=== PATIENT | female | born 1955 | race Caucasian/White ===

== ENCOUNTER 2020-07-04 11:06 | Inpatient (IN) | payer MEDICARE, BC ==
[~2020-07-04] VITALS: Ht 157.5 cm; Wt 82.6 kg
[2020-07-04 11:49] LABS: BASOPHILS ABSOLUTE AUTO 0.06 K/mm3 (0.00-0.23); BASOPHILS PERCENT AUTO 1 % (0-2); EOSINOPHILS ABSOLUTE AUTO 0.04 K/mm3 (0.00-0.68); EOSINOPHILS PERCENT AUTO 1 % (0-6); Hematocrit 46.7 % (33.0-51.0); Hemoglobin 14.2 g/dL (11.5-16.0); IMMATURE GRAN ABSOLUTE AUTO 0.09 K/mm3 (0.00-0.10); IMMATURE GRAN PERCENT AUTO 1 % (0-1); LYMPHOCYTES ABSOLUTE AUTO 0.54 K/mm3 (0.84-5.20); LYMPHOCYTES PERCENT AUTO 7 % (21-46); MONOCYTES ABSOLUTE AUTO 0.67 K/mm3 (0.16-1.47); MONOCYTES PERCENT AUTO 9 % (4-13); Mean Corpuscular HGB 31.2 pg (26.0-34.0); Mean Corpuscular HGB Conc 30.4 g/dL (31.5-36.5); Mean Corpuscular Volume 103 fL (80-100); Mean Platelet Volume 10.2 fL (9.1-12.4); NEUTROPHILS ABSOLUTE AUTO 6.11 K/mm3 (1.96-9.15); NEUTROPHILS PERCENT AUTO 81 % (41-73); Platelet Count 243 K/mm3 (150-400); RDW Coefficient Variation 14.2 % (11.7-14.2); RDW Standard Deviation 53.8 fL (35.1-46.3); Red Blood Cell Count 4.55 M/mm3 (3.80-5.20); White Blood Cell Count 7.51 K/mm3 (4.00-11.30)
[2020-07-04 12:12] LABS: Albumin, Blood 3.5 g/dL (3.4-5.0); Albumin/Globulin Ratio 1.2 (0.8-1.8); Bilirubin, Total 1.4 mg/dL (0.1-1.0); Bun/Creatinine Ratio 14.4 (12.0-20.0); Calcium, Blood 8.7 mg/dL (8.5-10.1); Creatinine, Blood 1.18 mg/dL (0.40-1.00); Globulin, Blood 2.9 g/dL (2.2-4.0); Potassium, Blood 4.6 mmol/L (3.5-5.5); Total Protein, Blood 6.4 g/dL (6.4-8.2); Troponin I 0.209 ng/mL (0.000-0.040)
[2020-07-04] MEDS ORDERED: ATOR80 PO (12:12)
[2020-07-04] MEDS ORDERED: LAMO100 PO (12:12)
[2020-07-04] MEDS ORDERED: LEVSOD25 PO (12:12)
[2020-07-04] MEDS ORDERED: ROPI1 PO (12:12)
[2020-07-04] MEDS ORDERED: MELO7.5 PO (12:13)
[2020-07-04 12:16] LABS: PCO2 Arterial 44.1 mmHg (35-45); PO2 Arterial 125 mmHg (80-100); pH Blood Arterial 7.35 (7.35-7.45)
[2020-07-04 12:51] LABS: U Amphetamine Screen Not Detected; U Barbituate Screen Not Detected; U Benzodiazapine Screen Not Detected; U Buprenorphine Screen Not Detected; U Cannabinoids Screen Not Detected; U Cocaine Screen Not Detected; U Methadone Screen Not Detected; U Methamphetamine Screen Not Detected; U Opiates Screen Not Detected; U Oxycodone Screen Not Detected; U Phencyclidine Screen Not Detected; U Propoxyphene Screen Not Detected
--- NOTE | 2020-07-04 17:49 | NUR ---
SUMMARY Assumed care of pt upon arrival to ICU from ED at 1505. Pt arrived on ventilator via 7.5 cm ETT, 23 cm LAMAR. Ventilator settings AC 16/350/7/30%. Pt initially sedated with propofol 10 mcg/kg/min with dosing weight 95 kg. Dosing weight changed to 85 kg and propofol increased to 20 mcg/kg/min as pt was easily agitated, pulling on restraints and attempting to grab ETT. Lungs coase t/o. Productive cough with frothy pink sputum. Dr Alford aware. BP low/normal. 500 mL bolus given per Dr Alford increased BP. Pt arrived with clamped OG tube in place with brown drainage in tube. Temp toure in place draining clear, yellow urine. No family has been in to see pt at this time.
--- NOTE | 2020-07-04 19:49 | NUR ---
ASSUMED CARE ASSUMED PT CARE. PT ET TO VENT, AC 16, TV 350, PEEP 7.0, FIO2 30%. LUNG SOUNDS COARSE THROUGHOUT. PUPILS PINPOINT. PT. RESPONDS TO PAINFUL STIMULI AND IS SEDATED ON PROPOFOL @ 30MCG. OG TO INTERMITTENT SUCTION. BOWEL TONES NORMAL. JONES CATH DRAINING CLEAR YELLOW URINE. NO SWELLING TO LOWER EXTREMETIES.
[2020-07-05 04:18] LABS: BASOPHILS ABSOLUTE AUTO 0.04 K/mm3 (0.00-0.23); BASOPHILS PERCENT AUTO 0 % (0-2); EOSINOPHILS ABSOLUTE AUTO 0.15 K/mm3 (0.00-0.68); EOSINOPHILS PERCENT AUTO 2 % (0-6); Hematocrit 39.7 % (33.0-51.0); Hemoglobin 12.4 g/dL (11.5-16.0); IMMATURE GRAN ABSOLUTE AUTO 0.03 K/mm3 (0.00-0.10); IMMATURE GRAN PERCENT AUTO 0 % (0-1); LYMPHOCYTES ABSOLUTE AUTO 1.29 K/mm3 (0.84-5.20); LYMPHOCYTES PERCENT AUTO 13 % (21-46); MONOCYTES ABSOLUTE AUTO 0.51 K/mm3 (0.16-1.47); MONOCYTES PERCENT AUTO 5 % (4-13); Mean Corpuscular HGB 31.6 pg (26.0-34.0); Mean Corpuscular HGB Conc 31.2 g/dL (31.5-36.5); Mean Corpuscular Volume 101 fL (80-100); Mean Platelet Volume 10.2 fL (9.1-12.4); NEUTROPHILS ABSOLUTE AUTO 7.84 K/mm3 (1.96-9.15); NEUTROPHILS PERCENT AUTO 80 % (41-73); Platelet Count 177 K/mm3 (150-400); RDW Coefficient Variation 14.6 % (11.7-14.2); RDW Standard Deviation 53.7 fL (35.1-46.3); Red Blood Cell Count 3.92 M/mm3 (3.80-5.20); White Blood Cell Count 9.86 K/mm3 (4.00-11.30)
[2020-07-05 04:38] LABS: Albumin, Blood 2.6 g/dL (3.4-5.0); Albumin/Globulin Ratio 1.2 (0.8-1.8); Bun/Creatinine Ratio 20.2 (12.0-20.0); Calcium, Blood 7.9 mg/dL (8.5-10.1); Creatinine, Blood 1.04 mg/dL (0.40-1.00); Globulin, Blood 2.1 g/dL (2.2-4.0); Potassium, Blood 3.3 mmol/L (3.5-5.5); Total Protein, Blood 4.7 g/dL (6.4-8.2)
--- NOTE | 2020-07-05 05:05 | NUR ---
PT POC GLUCOSE 59. NOTIFIED DR. BALTAZAR. IV FLUIDS TO CHANGE FROM NS TO D5.
--- NOTE | 2020-07-05 05:10 | NUR ---
PT. POTASSIUM AT 3.3. POTASSIUM ORDERED PER ELECTROLYTE PROTOCOL.
[2020-07-05 05:36] LABS: PO2 Arterial 111 mmHg (80-100); pH Blood Arterial 7.42 (7.35-7.45)
--- NOTE | 2020-07-05 06:33 | NUR ---
PT SUMMARY PT REMAINS ET TO VENT. AC 16, TV 350, FIO2 30%, PEEP 7. LUNG SOUNDS COARSE. SUCTIONING CLEAR SPUTUM. PT REMAINS ON PROPOFOL NOW AT 15MCG. PT. DOES WITHDRAW FROM PAIN AND DOES MAKE ATTEMPT TO OPEN EYES WHEN PROMPTED. NO OTHER PURPOSEFUL MOVEMENT. OG INTACT DRAINING GREEN FLUID. JONES CATH INTACT DRAINING DAVE FLUID.
--- NOTE | 2020-07-05 08:37 | NUR ---
Assumed care of pt at 0700. Bedside report received from Tu GOMEZ. Sedated with 15 mcg/kg/min propofol. Responsive to painful stimulus. Pt became alert with ET suctioning. Following commands. Changed to spontaneous mode on ventilator PS 7/7 and 30% FiO2. RR 22-24. Tidal volumes 250-300 mL. SpO2 100%. Propofol turuned off. No increase noted in tidal volumes. Precedex started. SBT continued until 0810 until pt became agitated while receiving echocardiogram. Pt switched back to AC 16/350/7/30%. Propofol at 15 mcg/kg/min. Precedex 0.2 mcg/kg/hr. On assessment, ETT remains 23 cm LAMAR. Lungs clear t/o. Moderate amounts of thick, guerrero sputum suctioned from ETT. Abd soft, nontender, nondistended. Hypoactive BT. OG tube to LIS with bile drainage. Temp toure draining clear shadia urine.
--- NOTE | 2020-07-05 11:18 | NUR ---
Pt's in to see pt briefly. Updated on echocardiogram results. Dr Yousif consulted by Dr Alford. Dr Yuosif states plan to take patient to labor relations manager this afternoon for patient to have left and right heart cath. Decreased urine output noted this morning. Dr Yousif and Dr Alford aware of current BP and urine output. Call placed to son by Dr Yousif. Son is POA according to pt's spouse.
[2020-07-05 11:26] LABS: Source, Urine Catheter
[2020-07-05 11:41] LABS: Appearance, Urine Hazy (Clear); Bilirubin, Urine Neg (Neg); Blood, Urine 4+ (Neg); Color, Urine Yellow (P-Yellow); Glucose Qualitative, Urine 1+ (Neg); Ketones, Urine Neg (Neg); Leukocyte Esterase, Urine Neg (Neg); Nitrite, Urine Neg (Neg); Protein, Urine 4+ (Neg); Specific Gravity, Urine 1.015 (1.003-1.022); Urobilinogen, Urine 1+ (Normal)
[2020-07-05 11:58] LABS: Amorphous Mod (0-Heavy); Bacteria Many /hpf; Squamous Epithelial Cells Few /hpf (Few)
[2020-07-05 13:13] LABS: International Normalized Ratio 1.61; Prothrombin Time Results 16.8 Sec (9.7-11.5)
--- NOTE | 2020-07-05 13:38 | NUR ---
Patient to slab lifting supervisor. At time of transfer, precedex off. Propofol 20 mcg/kg/min.
--- NOTE | 2020-07-05 17:47 | NUR ---
Pt returned back to room from open hearth laborer at 1538. Pt arrived with right femoral artery site with baloon pump. Right femoral venous site with sheath in place. BP stable. Augmentation pressure 120s. HR 48-52. Dr Yousif at bedside shortly after pt arrival to unit for LUZ. Pt remained on same dose of propofol (20 mcg/kg/min) for LUZ sedation. Tolerated well. After LUZ, family updated by Dr Yousif and plan for pt to transfer to [place]. On assessment, pt responsive to painful stimulus. Gag and cough present. Precedex remains off. Lungs clear t/o. SpO2 90% or greater AC 16/350/7/30%. ETT remains 23 cm LAMAR. Sinus bradycardia per monitor. Levophed started to maintain augmentation pressure in 120s in addition to 1:1 IAB frequency and maximum setting on baloon pump. Color, sensation, capillary refill, and distal pulses equal BUE and BLE.
--- NOTE | 2020-07-05 20:07 | NUR ---
Pt departed from ICU 7 at 1920 with REACH, to [facility]. Transfer via ground as air transfer is not available due to weather. Report called to Farheen GOMEZ at [facility]. At time of transfer, pt sedated with 20 mcg/kg/min (dosing weight 85) propofol. Responsive to painful stimulus. Wrists restrained to prevent self-extubation. SB per monitor with HR ranging 48-52. Dr Yousif aware of low HR. Balloon pump with 1:1 assist and maximum augmentation pressure setting. Pt also receiving 1 mcg/min levophed. Augmentation pressures 120s. Right femoral artery and right femoral vein accesses unchanged from inital assessment. No bruising, leakage, or hematoma. Color, sensation, pulses, and capillary refill equal BUE and BLE. In addition to propofol and levophed, pt departed with D10 infusing at rate of 75 mL/hr and heparin infusing per orders 13 units/kg/hr with ideal weight dosing of 63 kg. All IV fluids infusing through PICC line in JOSÉ MIGUEL that has 1 cm exposed- which is unchanged from measurement at time of placement. Dressing C/D/I. Pt also had one saline locked IV to [facility]. Patient received 1 amp of D50 prior to departure due to low blood sugar levels per telephone order from Dr Solis. Pt departed with clamped OG tube- tube feeds were never started on this patient. Temp toure catheter in place draining dark shadia urine. Approx 40 mL urine output since arrival from [facility]. Pt's son notified of pt's departure from facility. Receiving facility notified of pt's departure as well. Additional bottle of propofol sent with transport crew.
== END 2020-07-05 19:17 | disposition short-term general hospital (02) | DRG 270 ==
LOC: ER 11:06 → ICUW 13:30 → ICUE 13:30
PROVIDERS: Internal Medicine Pulmonary Disease; Pharmacist; Physician Assistant; ADMIT Internal Medicine
PROC: 0BH18EZ Insertion of Endotracheal Airway into Trachea, Via Natural or Artificial Opening Endoscopic (ICD-10-PCS; principal; 2020-07-04)
PROC: 5A1945Z Respiratory Ventilation, 24-96 Consecutive Hours (ICD-10-PCS; 2020-07-04)
PROC: 02HV33Z Insertion of Infusion Device into Superior Vena Cava, Percutaneous Approach (ICD-10-PCS; 2020-07-04)
PROC: B24BZZ4 Ultrasonography of Heart with Aorta, Transesophageal (ICD-10-PCS; 2020-07-05)
PROC: 5A02210 Assistance with Cardiac Output using Balloon Pump, Continuous (ICD-10-PCS; 2020-07-05)
PROC: B24BZZ4 Ultrasonography of Heart with Aorta, Transesophageal (ICD-10-PCS; 2020-07-05)
PROC: 4A023N8 Measurement of Cardiac Sampling and Pressure, Bilateral, Percutaneous Approach (ICD-10-PCS; 2020-07-05)
PROC: B2111ZZ Fluoroscopy of Multiple Coronary Arteries using Low Osmolar Contrast (ICD-10-PCS; 2020-07-05)
DX: I34.0 Nonrheumatic mitral (valve) insufficiency (principal); G92 Toxic encephalopathy; J96.01 Acute respiratory failure with hypoxia; I21.4 Non-ST elevation (NSTEMI) myocardial infarction; B17.9 Acute viral hepatitis, unspecified; E87.0 Hyperosmolality and hypernatremia; I50.30 Unspecified diastolic (congestive) heart failure; Z99.81 Dependence on supplemental oxygen; Z20.828 Contact with and (suspected) exposure to other viral communicable diseases; G40.909 Epilepsy, unspecified, not intractable, without status epilepticus; Z96.611 Presence of right artificial shoulder joint; F31.9 Bipolar disorder, unspecified; E78.5 Hyperlipidemia, unspecified; Z87.891 Personal history of nicotine dependence; I27.20 Pulmonary hypertension, unspecified; E87.6 Hypokalemia; I25.10 Atherosclerotic heart disease of native coronary artery without angina pectoris; E16.2 Hypoglycemia, unspecified; Z78.1 Physical restraint status; I11.0 Hypertensive heart disease with heart failure
CPT/HCPCS: 31500; 31720; 33967; 36415; 36569; 36600; 70450; 71045; 76700; 76937; 80053; 81001; 82803; 82947; 83605; 83880; 84484; 85025; 85610; 85730; 87040; 87070; 87086; 87205; 93005; 93010; 93306; 93312; 93325; 93460; 94002; 94003; 94770; 96375; 96376; 99152; 99153; 99285-25; A9270-GY; C1751; C1769; C1894; C9113; J0330; J0696; J1644; J1650; J1953; J2060; J2704; J3010; J3480; J7030; J7040; J7050; J7060; J7070; Q9967; U0004

== ENCOUNTER 2020-07-14 13:48 | Inpatient (IN) | payer MEDICARE, BC ==
[~2020-07-14] VITALS: Ht 154.9 cm; Wt 73.4 kg
[~2020-07-14 13:48] MED LIST: ATOR80 PO; LAMO100 PO; LEVSOD25 PO; MELO7.5 PO; ROPI1 PO
[2020-07-14 14:47] LABS: BASOPHILS ABSOLUTE AUTO 0.13 K/mm3 (0.00-0.23); BASOPHILS PERCENT AUTO 1 % (0-2); EOSINOPHILS ABSOLUTE AUTO 0.16 K/mm3 (0.00-0.68); EOSINOPHILS PERCENT AUTO 2 % (0-6); Hemoglobin 13.6 g/dL (11.5-16.0); IMMATURE GRAN ABSOLUTE AUTO 0.05 K/mm3 (0.00-0.10); IMMATURE GRAN PERCENT AUTO 1 % (0-1); LYMPHOCYTES ABSOLUTE AUTO 1.01 K/mm3 (0.84-5.20); LYMPHOCYTES PERCENT AUTO 10 % (21-46); MONOCYTES ABSOLUTE AUTO 0.93 K/mm3 (0.16-1.47); MONOCYTES PERCENT AUTO 10 % (4-13); Mean Corpuscular HGB 31.4 pg (26.0-34.0); Mean Corpuscular HGB Conc 30.9 g/dL (31.5-36.5); Mean Corpuscular Volume 102 fL (80-100); Mean Platelet Volume 9.9 fL (9.1-12.4); NEUTROPHILS ABSOLUTE AUTO 7.49 K/mm3 (1.96-9.15); NEUTROPHILS PERCENT AUTO 77 % (41-73); Platelet Count 352 K/mm3 (150-400); RDW Coefficient Variation 14.9 % (11.7-14.2); RDW Standard Deviation 55.2 fL (35.1-46.3); Red Blood Cell Count 4.33 M/mm3 (3.80-5.20); White Blood Cell Count 9.77 K/mm3 (4.00-11.30)
[2020-07-14 14:58] LABS: International Normalized Ratio 1.15; Prothrombin Time Results 12.2 Sec (9.7-11.5)
[2020-07-14 15:29] LABS: Albumin/Globulin Ratio 0.9 (0.8-1.8); Bilirubin, Total 0.9 mg/dL (0.1-1.0); Bun/Creatinine Ratio 12.7 (12.0-20.0); Creatinine, Blood 1.18 mg/dL (0.40-1.00); Globulin, Blood 3.4 g/dL (2.2-4.0); Potassium, Blood 3.6 mmol/L (3.5-5.5); Total Protein, Blood 6.4 g/dL (6.4-8.2)
[2020-07-14] MEDS ORDERED: ROPINIROLE HCL3 M1 PO (15:52)
[2020-07-14] MEDS ORDERED: TORS10 PO (15:53)
[2020-07-14] MEDS ORDERED: MOBIC15 MG PO (15:53)
[2020-07-14 17:15] LABS: Source, Urine Clean Catch
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
[2020-07-14 17:38] LABS: Appearance, Urine Clear (Clear); Bilirubin, Urine Neg (Neg); Blood, Urine Neg (Neg); Color, Urine Yellow (P-Yellow); Glucose Qualitative, Urine Neg (Neg); Ketones, Urine Neg (Neg); Leukocyte Esterase, Urine Neg (Neg); Nitrite, Urine Neg (Neg); Protein, Urine Neg (Neg); Urobilinogen, Urine NORM (Normal)
--- NOTE | 2020-07-14 22:19 | NUR ---
PT TRANSFER TO SCU PT TRANSFERED TO SCU DUE TO WANDERING MAIN FLOOR. PT CONFUSED AND DOES NOT FOLLOW DIRECTION. RECIEVED REORT FROM Kalie STANFORD RN. PT HAS REFUSED SCHEDULED MEDS. PT REFUSES TO WEAR TELE AND CONTINUALLY PULLS LEADS OFF.
[2020-07-15 05:19] LABS: BASOPHILS ABSOLUTE AUTO 0.14 K/mm3 (0.00-0.23); BASOPHILS PERCENT AUTO 2 % (0-2); EOSINOPHILS ABSOLUTE AUTO 0.48 K/mm3 (0.00-0.68); EOSINOPHILS PERCENT AUTO 6 % (0-6); Hematocrit 44.6 % (33.0-51.0); Hemoglobin 13.7 g/dL (11.5-16.0); IMMATURE GRAN ABSOLUTE AUTO 0.07 K/mm3 (0.00-0.10); IMMATURE GRAN PERCENT AUTO 1 % (0-1); LYMPHOCYTES PERCENT AUTO 14 % (21-46); MONOCYTES ABSOLUTE AUTO 0.76 K/mm3 (0.16-1.47); MONOCYTES PERCENT AUTO 10 % (4-13); Mean Corpuscular HGB 31.4 pg (26.0-34.0); Mean Corpuscular HGB Conc 30.7 g/dL (31.5-36.5); Mean Corpuscular Volume 102 fL (80-100); NEUTROPHILS ABSOLUTE AUTO 5.35 K/mm3 (1.96-9.15); NEUTROPHILS PERCENT AUTO 68 % (41-73); RDW Coefficient Variation 15.2 % (11.7-14.2); RDW Standard Deviation 56.6 fL (35.1-46.3); Red Blood Cell Count 4.37 M/mm3 (3.80-5.20)
[2020-07-15 05:21] LABS: Mean Platelet Volume 10.2 fL (9.1-12.4); Platelet Count 296 K/mm3 (150-400)
--- NOTE | 2020-07-15 05:37 | NUR ---
SUMMARY PT TELE PLACED BACK ON PT AND IS NOT TAKING LEADS OFF. PT REMAINS CONFUSED AND SOMNOLENT. PT HAS BEEN SLEEPING SINCE BEING MOVED TO CURRENT ROOM. PT CURRENTLY SLEEPING AMD IN NO DISTRESS. PT TELE CURRENTLY SR @ 88. CALL LIGHT IN REACH AND BED ALARM ON.
[2020-07-15 05:51] LABS: Alanine Aminotransfer (ALT/SGP 97 U/L (12-78); Albumin, Blood 2.9 g/dL (3.4-5.0); Albumin/Globulin Ratio 0.9 (0.8-1.8); Alk Phos 185 U/L (50-136); Anion Gap 5 mmol/L (6-16); Aspartate Aminotrans (AST/SGOT 45 U/L (12-37); Blood Urea Nitrogen 15 mg/dL (8-24); Bun/Creatinine Ratio 15.4 (12.0-20.0); CO2, Blood 30 mmol/L (21-32); Calcium, Blood 8.9 mg/dL (8.5-10.1); Chloride, Blood 113 mmol/L (98-108); Creatinine, Blood 0.98 mg/dL (0.40-1.00); Globulin, Blood 3.4 g/dL (2.2-4.0); Glomerular Filtration Rate >60 (60-); Glucose, Blood 87 mg/dL (70-99); Magnesium, Blood 2.4 mg/dL (1.6-2.4); Potassium, Blood 4.3 mmol/L (3.5-5.5); Sodium, Blood 148 mmol/L (136-145); Total Protein, Blood 6.3 g/dL (6.4-8.2)
--- NOTE | 2020-07-15 19:46 | NUR ---
SHIFT SUMMARY: PATIENT QUITE AGITATED AT START OF SHIFT, WAS BEHAVING BELIGERENTLY TO NURSING STAFF. MORNING PROGRESSED, SHE BECAME MORE REASONABLE BUT STILL HAVING PERIODS OF CHARANJIT. PHYSICAL THERAPY AND OCC TX WORKED WITH PT TODAY, SHE DID WELL WITH FWW. A&O X 2 , DOES NOT KNOW DAY/DATE. SPEECH NO LONGER SLURRED BUT IS RUSHED AT TIMES. INCONTINENT OF BLADDER. GOOD APPETITE. THIS AUTHOR SPOKE TO PT'S SON SIENNA BY PHONE, GAVE UPDATE. HE IS PLANNING TO ACQUIRE DME (HOSPITAL BED AND BSC) TO HELP PATIENT AT HOME. PT HAD MRI HEAD TODAY, TOLERATED WELL.
[2020-07-15 21:10] LABS: U Amphetamine Screen Not Detected; U Barbituate Screen Not Detected; U Benzodiazapine Screen DETECTED; U Buprenorphine Screen Not Detected; U Cannabinoids Screen Not Detected; U Cocaine Screen Not Detected; U Methadone Screen Not Detected; U Methamphetamine Screen Not Detected; U Opiates Screen Not Detected; U Oxycodone Screen Not Detected; U Phencyclidine Screen Not Detected; U Propoxyphene Screen Not Detected
[2020-07-16 05:26] LABS: Hematocrit 41.3 % (33.0-51.0); Hemoglobin 12.6 g/dL (11.5-16.0); Mean Corpuscular HGB 31.5 pg (26.0-34.0); Mean Corpuscular HGB Conc 30.5 g/dL (31.5-36.5); Mean Corpuscular Volume 103 fL (80-100); Platelet Count 363 K/mm3 (150-400); RDW Coefficient Variation 14.7 % (11.7-14.2); RDW Standard Deviation 56.4 fL (35.1-46.3)
[2020-07-16 05:40] LABS: Alanine Aminotransfer (ALT/SGP 78 U/L (12-78); Albumin, Blood 2.8 g/dL (3.4-5.0); Albumin/Globulin Ratio 0.8 (0.8-1.8); Alk Phos 171 U/L (50-136); Anion Gap 5 mmol/L (6-16); Aspartate Aminotrans (AST/SGOT 36 U/L (12-37); Bilirubin, Total 0.8 mg/dL (0.1-1.0); Blood Urea Nitrogen 16 mg/dL (8-24); Bun/Creatinine Ratio 16.4 (12.0-20.0); CO2, Blood 31 mmol/L (21-32); Calcium, Blood 8.8 mg/dL (8.5-10.1); Chloride, Blood 106 mmol/L (98-108); Creatinine, Blood 0.98 mg/dL (0.40-1.00); Globulin, Blood 3.3 g/dL (2.2-4.0); Glomerular Filtration Rate >60 (60-); Glucose, Blood 102 mg/dL (70-99); Potassium, Blood 3.7 mmol/L (3.5-5.5); Sodium, Blood 142 mmol/L (136-145); Total Protein, Blood 6.1 g/dL (6.4-8.2)
--- NOTE | 2020-07-16 06:18 | NUR ---
SHIFT SUMMARY AOX4. HAS RAPID SPEECH @TIMES. WORRISOME ABOUT RECIEVING MEDS @BEGINNING OF SHIFT, APPEARING ANXIOUS, RESTED COMFORTABLY T/O NIGHT AFTER RECIEVING PM MEDS. VSS. TELE NSR @66. DENIES N/V, DYSPNEA. REPORTED OROZCO, MEDICATED 1X c TYLENOL & STATED RELIEF. PLEASENT & COOPERATIVE c CARE. CALL LIGHT IN REACH & PT ABLE TO MAKE NEEDS KNOWN.
[2020-07-16] MEDS ORDERED: LEVSOD100 PO (15:33)
[2020-07-16] MEDS ORDERED: ASPI81CH PO (15:34)
[2020-07-16] MEDS ORDERED: METO25 PO (15:37)
[2020-07-16] MEDS ORDERED: XARELTO10 M1 PO (15:37)
--- NOTE | 2020-07-16 16:59 | NUR ---
SHIFT SUMMARY: NO ACUTE EVENTS TODAY. A&O X 3, PLEASANT BUT BECOMES QUITE AGITATED WHEN TALKING TO HER SON AND/OR SPOUSE ON THE PHONE. NO EVENTS ON TELEMETRY. C/O HEADACHE THIS MORNING; MEDICATED WITH TYLENOL WITH ADEQUATE RELIEF. GOOD APPETITE. D/C PLAN IN PLACE: PT'S SON SIENNA IS TO PICK HER UP TONIGHT AROUND 0. ALL NIGHTTIME MEDICATIONS WILL BE GIVEN PRIOR TO D/C NEW PRESCRIPTIONS CANNOT BE PICKED UP UNITL TOMORROW.
--- NOTE | 2020-07-16 19:41 | NUR ---
AM NURSE DISCUSSED DC CRITERIA FOR TONIGHT, THEN TO MANUFACTURE SPECIALIST MEDS TOMORROW AT [facility]. WAITING WITH CALL LIGHT IN REACH FOR SON TO PICK HER UP FOR DISCHARGE TO HOME WITH ALL BELONGINGS
--- NOTE | 2020-07-16 20:43 | NUR ---
dischaged to home with all scripts and belongings per MD orders. . son here to take her home. accompanid to vehicle per staff via wheelchair. no c/o voiced.
== END 2020-07-16 20:35 | disposition home or self-care (01) | DRG 69 ==
LOC: ER 13:48 → MEDS 17:19
PROVIDERS: Emergency Medicine; ADMIT Internal Medicine
DX: G45.9 Transient cerebral ischemic attack, unspecified (principal); I48.0 Paroxysmal atrial fibrillation; I25.2 Old myocardial infarction; E03.9 Hypothyroidism, unspecified; G40.909 Epilepsy, unspecified, not intractable, without status epilepticus; I34.0 Nonrheumatic mitral (valve) insufficiency; J44.9 Chronic obstructive pulmonary disease, unspecified; Z87.891 Personal history of nicotine dependence; I48.91 Unspecified atrial fibrillation; F41.9 Anxiety disorder, unspecified; I27.20 Pulmonary hypertension, unspecified; I10 Essential (primary) hypertension
CPT/HCPCS: 36415; 70450; 70496; 70498; 70551; 71045; 80053; 81003; 82140; 82947; 83735; 84443; 85025; 85027; 85610; 92610; 93005; 93010; 96365-59; 96375-59; 96376-59; 97161; 97165; 99285-25; A9270; A9270-GY; J1650; J2060; Q9967

== ENCOUNTER 2020-09-13 13:56 | Inpatient (IN) | payer MEDICARE, BC ==
[~2020-09-13] VITALS: Ht 162.6 cm; Wt 71.1 kg
[~2020-09-13 13:56] MED LIST changes: +Aspirin EC81 MG PO; +LEVSOD100 PO; +METO25 PO; +MOBIC15 MG PO; +ROPINIROLE HCL3 M1 PO; +TORS10 PO; +XARELTO10 M1 PO
[2020-09-13 14:40] LABS: BASOPHILS ABSOLUTE AUTO 0.12 K/mm3 (0.00-0.23); BASOPHILS PERCENT AUTO 1 % (0-2); EOSINOPHILS PERCENT AUTO 3 % (0-6); Hematocrit 41.5 % (33.0-51.0); Hemoglobin 13.4 g/dL (11.5-16.0); IMMATURE GRAN ABSOLUTE AUTO 0.02 K/mm3 (0.00-0.10); IMMATURE GRAN PERCENT AUTO 0 % (0-1); LYMPHOCYTES ABSOLUTE AUTO 1.22 K/mm3 (0.84-5.20); LYMPHOCYTES PERCENT AUTO 13 % (21-46); MONOCYTES ABSOLUTE AUTO 1.04 K/mm3 (0.16-1.47); MONOCYTES PERCENT AUTO 11 % (4-13); Mean Corpuscular HGB 32.1 pg (26.0-34.0); Mean Corpuscular HGB Conc 32.3 g/dL (31.5-36.5); Mean Corpuscular Volume 100 fL (80-100); Mean Platelet Volume 9.4 fL (9.1-12.4); NEUTROPHILS ABSOLUTE AUTO 7.02 K/mm3 (1.96-9.15); NEUTROPHILS PERCENT AUTO 72 % (41-73); Platelet Count 360 K/mm3 (150-400); RDW Coefficient Variation 13.1 % (11.7-14.2); RDW Standard Deviation 47.4 fL (35.1-46.3); Red Blood Cell Count 4.17 M/mm3 (3.80-5.20); White Blood Cell Count 9.72 K/mm3 (4.00-11.30)
[2020-09-13 14:51] LABS: Alanine Aminotransfer (ALT/SGP 37 U/L (12-78); Albumin, Blood 4.2 g/dL (3.4-5.0); Albumin/Globulin Ratio 1.2 (0.8-1.8); Alk Phos 174 U/L (50-136); Anion Gap 12 mmol/L (6-16); Aspartate Aminotrans (AST/SGOT 44 U/L (12-37); Bilirubin, Total 1.4 mg/dL (0.1-1.0); Blood Urea Nitrogen 18 mg/dL (8-24); Bun/Creatinine Ratio 22.8 (12.0-20.0); CO2, Blood 20 mmol/L (21-32); Calcium, Blood 9.4 mg/dL (8.5-10.1); Chloride, Blood 107 mmol/L (98-108); Creatinine, Blood 0.79 mg/dL (0.40-1.00); Globulin, Blood 3.6 g/dL (2.2-4.0); Glomerular Filtration Rate >60 (60-); Glucose, Blood 105 mg/dL (70-99); Potassium, Blood 4.2 mmol/L (3.5-5.5); Sodium, Blood 139 mmol/L (136-145); Total Protein, Blood 7.8 g/dL (6.4-8.2)
[2020-09-13 14:55] LABS: Ethanol (Alcohol), Blood, Med <3 mg/dL; Magnesium, Blood 2.3 mg/dL (1.6-2.4); Troponin I 0.033 ng/mL (0.000-0.040)
[2020-09-13 14:59] LABS: International Normalized Ratio 1.07; Prothrombin Time Results 11.4 Sec (9.7-11.5)
[2020-09-13 15:18] LABS: Source, Urine Clean Catch
[2020-09-13 15:26] LABS: Appearance, Urine Clear (Clear); Blood, Urine Neg (Neg); Color, Urine Amber (P-Yellow); Glucose Qualitative, Urine Neg (Neg); Ketones, Urine 4+ (Neg); Leukocyte Esterase, Urine 1+ (Neg); Nitrite, Urine Neg (Neg); Protein, Urine 2+ (Neg); Urobilinogen, Urine 2+ (Normal)
[2020-09-13 15:48] LABS: Free Thyroxine 1.45 ng/dL (0.70-1.60); Thyroid Stimulating Hormone 3.78 uIU/mL (0.360-4.800)
[2020-09-13 16:01] LABS: U Amphetamine Screen Not Detected; U Barbituate Screen Not Detected; U Benzodiazapine Screen Not Detected; U Buprenorphine Screen Not Detected; U Cannabinoids Screen DETECTED; U Cocaine Screen Not Detected; U Methadone Screen Not Detected; U Methamphetamine Screen Not Detected; U Opiates Screen Not Detected; U Oxycodone Screen Not Detected; U Phencyclidine Screen Not Detected; U Propoxyphene Screen Not Detected
[2020-09-13 16:07] LABS: Bilirubin, Urine 1+ (Neg)
[2020-09-13 16:10] LABS: Bacteria Few /hpf; Red Blood Cells, Urine 0-2 /hpf (0-2); Squamous Epithelial Cells Few /hpf (Few)
[2020-09-13 16:11] LABS: Hyaline Casts 0-2 /lpf (0-2)
[2020-09-13] MEDS ORDERED: ELIQUIS5 M3 PO (18:00)
[2020-09-13] MEDS ORDERED: SYNTHROID25 MC3 PO (18:01)
--- NOTE | 2020-09-13 19:15 | NUR ---
ASSUMPTION OF CARE RECEIVED REPORT FROM SHERMAN GOMEZ. ASSUMED CARE OF PATIENT. PATIENT WITH EYES CLOSED, AWAKENS TO PHYSICAL STIMULI. NO S/S OF DISTRESS. VITALS STABLE. IV TO LFA NOTED TO BE OCCLUDED. RN ATTEMPTING IV AT BEDSIDE FOR FLUIDS AND ANTIBIOTICS. WILL REVIEW ORDERS AND TREAT PRESCRIBED.
--- NOTE | 2020-09-14 | NUR ---
REASSESSMENT PATIENT AWOKE TO NAME, RN ASKED PATIENT WHERE SHE WAS, PATIENT RESPONDED "HOSPITAL". RN ASKED PATIENT IF SHE NEEDED TO PEE, PATIENT STATED YES. PATIENT FOLLOWED DIRECTION AND WAS PLACED ON BEDPAN WITH ONE STAFF ASSIST. PATIENT CONTINENT OF URINE AND STOOL. FOLLOWED COMMANDS WITH REPOSITIONING. CLOSED EYES AND BEGAN RESTING COMFORTABLY AFTER ADL'S COMPLETED. NO OTHER ACUTE CHANGES TO PREVIOUS ASSESSMENT. VITALS REMAIN STABLE. BED ALARM ON AND CALL LIGHT IN REACH.
--- NOTE | 2020-09-14 04:00 | NUR ---
REASSESSMENT NO ACUTE CHANGES FROM PREVIOUS ASSESSMENT. MUTLIPLE RN'S ATTEMPTING ADDITIONAL IV PLACEMENT, NO SUCCESS AT THIS TIME. WILL CONTINUE TO ATTEMPT IV PLACEMENT. PATIENT TOLERATED IV ATTEMPTS WELL. VITALS STABLE, CALL LIGHT IN REACH.
[2020-09-14 04:55] LABS: BASOPHILS ABSOLUTE AUTO 0.12 K/mm3 (0.00-0.23); BASOPHILS PERCENT AUTO 2 % (0-2); EOSINOPHILS ABSOLUTE AUTO 0.51 K/mm3 (0.00-0.68); EOSINOPHILS PERCENT AUTO 7 % (0-6); Hematocrit 35.6 % (33.0-51.0); Hemoglobin 11.6 g/dL (11.5-16.0); IMMATURE GRAN ABSOLUTE AUTO 0.02 K/mm3 (0.00-0.10); IMMATURE GRAN PERCENT AUTO 0 % (0-1); LYMPHOCYTES ABSOLUTE AUTO 0.97 K/mm3 (0.84-5.20); LYMPHOCYTES PERCENT AUTO 14 % (21-46); MONOCYTES ABSOLUTE AUTO 0.71 K/mm3 (0.16-1.47); MONOCYTES PERCENT AUTO 10 % (4-13); Mean Corpuscular HGB 33.1 pg (26.0-34.0); Mean Corpuscular HGB Conc 32.6 g/dL (31.5-36.5); Mean Corpuscular Volume 102 fL (80-100); Mean Platelet Volume 9.3 fL (9.1-12.4); NEUTROPHILS ABSOLUTE AUTO 4.54 K/mm3 (1.96-9.15); NEUTROPHILS PERCENT AUTO 66 % (41-73); Platelet Count 278 K/mm3 (150-400); RDW Coefficient Variation 13.1 % (11.7-14.2); RDW Standard Deviation 48.5 fL (35.1-46.3); White Blood Cell Count 6.87 K/mm3 (4.00-11.30)
[2020-09-14 05:16] LABS: Alanine Aminotransfer (ALT/SGP 31 U/L (12-78); Albumin, Blood 3.2 g/dL (3.4-5.0); Albumin/Globulin Ratio 1.1 (0.8-1.8); Alk Phos 135 U/L (50-136); Anion Gap 8 mmol/L (6-16); Aspartate Aminotrans (AST/SGOT 35 U/L (12-37); Bilirubin, Total 1.2 mg/dL (0.1-1.0); Blood Urea Nitrogen 15 mg/dL (8-24); Bun/Creatinine Ratio 22.9 (12.0-20.0); CO2, Blood 23 mmol/L (21-32); Calcium, Blood 8.1 mg/dL (8.5-10.1); Chloride, Blood 114 mmol/L (98-108); Creatinine, Blood 0.66 mg/dL (0.40-1.00); Globulin, Blood 2.9 g/dL (2.2-4.0); Glomerular Filtration Rate >60 (60-); Glucose, Blood 86 mg/dL (70-99); Potassium, Blood 3.4 mmol/L (3.5-5.5); Sodium, Blood 145 mmol/L (136-145); Total Protein, Blood 6.1 g/dL (6.4-8.2)
--- NOTE | 2020-09-14 06:10 | NUR ---
SHIFT SUMMARY PATIENT WITH EYES CLOSED, EASILY AWAKENS. ANSWERED ORIENTATION QUESTIONS APPROPRIATELY THIS MORNING. DENIED DISCOMFORTS. STATED SHE DID NOT NEED TO USE THE TOILET RIGHT NOW, EDUCATED PATIENT TO USE CALL LIGHT WHEN READY. PATIENT VERBALIZED UNDERSTANDING. IV FLUIDS INFUSING ORDERED. ATTENDS IN PLACE, BUT PATIENT HAS REMAINED CONTINENT. VITALS STABLE. BED ALARM ON AND CALL LIGHT IN REACH. WILL REPORT TO ONCOMING RN.
--- NOTE | 2020-09-14 07:30 | NUR ---
ASSUMED CARE: PT RESTING IN BED AT THIS TIME. GRIMACES WITH NOXIOUS STIMULI BUT DOES NOT WAKE FOR STAFF THIS AM. NSR ON TELE, NO ACUTE SIGNS OF DISTRESS OR CONCERNS.
--- NOTE | 2020-09-14 12:30 | NUR ---
DR HARDY CAME TO SEE PT AND ORDERED MED WITH TELE DUE TO PROLONGED QT INTERVAL ON RECENT EKG. PT WAKES UP, APPEARS PARANOID AT TIMES DUE TO THE SUSPICIOUS LOOKS SHE GIVES STAFF WHEN ATTEMPTING TO PROVIDE CARE. ONLY WANTS TO SLEEP AND DECLINES FURTHER NEEDS AT THIS TIME.
--- NOTE | 2020-09-14 13:03 | NUR ---
PT CALLED RN TO ROOM AND SAID SHE NEEDED TO USE THE RESTROOM. RN WENT TO ASSIST HER TO COMMODE AND PT ASKED IF RN THOUGHT SHE COULD GET THERE. RN STATED THAT PT WOULD HAVE TO TRY FIRST BUT IF SHE WAS UNSURE WE COULD USE BED ALEXANDER. PT REFUSED AND SAID SHE WOULD JUST HOLD IT. TOLD RN TO LEAVE AND ASKED FOR SOMEONE "WHO KNOWS WHAT THEY'RE DOING." RN ASKED FOR CHARGE NURSE TO ASSIST AND PT KICKED CURTAIN FITTER OUT OF ROOM WELL. CALL TO DR LINARES TO REPORT WHAT APPEARS TO BE PARANOIA. DR LINARES STATES SHE WILL CONSULT PSYCH WHEN SOMEONE IS AVAILABLE DUE TO PT SEEMING TO REFUSE THINGS AND WOULD LIKELY REFUSE TELEPSYCH AT THIS TIME.
--- NOTE | 2020-09-14 14:35 | NUR ---
RN WENT TO BEDSIDE TO REMOVE TRAY AND PT GAVE SHORT, QUICK COMMANDS AND SAID "AND THEN YOU CAN LEAVE TOO." RN CLEANED UP TABLE AND PUT BELONGINGS WITHIN REACH. PT SAID "BYE" IN A SARCASTIC WAY. REFUSES CARE OFFERED BY THIS RN. BAGGAGE PORTER HEAD AT BEDSIDE AT THIS TIME.
--- NOTE | 2020-09-14 15:59 | NUR ---
CALL TO DR LINARES REGARDING REPEAT EKG. SLIGHTLY IMPROVED. NO NEW ORDERS AT THIS TIME.
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
--- NOTE | 2020-09-14 18:46 | NUR ---
PT CALLED AND ASKED FOR HER LAMICTAL TO BE REORDERED. THIS RN STATED SHE WOULD CALL THE DR TO GET IT REORDERED. PT SAID, "I'M NOT TAKING ANYTHING FROM YOU." RN RESPONDED, "THAT'S FINE. I CAN HAVE SOMEONE ELSE GIVE IT TO YOU BUT I WILL CALL THE DR TO GET IT REORDERED." PT SAID "OK CAN YOU DO THAT AT LEAST?" PT VERY AGITATED WHEN THIS RN ENTERS ROOM. CAMPAIGN MARKETING MANAGER AWARE
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
--- NOTE | 2020-09-15 07:14 | NUR ---
ASSUMED CARE PT SLEEPING, VSS, NO FEVERS OR ECTOPE OVERNIGHT
[2020-09-15 08:18] LABS: BASOPHILS ABSOLUTE AUTO 0.11 K/mm3 (0.00-0.23); BASOPHILS PERCENT AUTO 2 % (0-2); EOSINOPHILS ABSOLUTE AUTO 0.45 K/mm3 (0.00-0.68); EOSINOPHILS PERCENT AUTO 7 % (0-6); Hematocrit 37.6 % (33.0-51.0); IMMATURE GRAN ABSOLUTE AUTO 0.01 K/mm3 (0.00-0.10); IMMATURE GRAN PERCENT AUTO 0 % (0-1); LYMPHOCYTES ABSOLUTE AUTO 0.98 K/mm3 (0.84-5.20); LYMPHOCYTES PERCENT AUTO 14 % (21-46); MONOCYTES ABSOLUTE AUTO 0.68 K/mm3 (0.16-1.47); MONOCYTES PERCENT AUTO 10 % (4-13); Mean Corpuscular HGB 32.2 pg (26.0-34.0); Mean Corpuscular HGB Conc 31.9 g/dL (31.5-36.5); Mean Corpuscular Volume 101 fL (80-100); Mean Platelet Volume 9.3 fL (9.1-12.4); NEUTROPHILS ABSOLUTE AUTO 4.72 K/mm3 (1.96-9.15); NEUTROPHILS PERCENT AUTO 68 % (41-73); Platelet Count 282 K/mm3 (150-400); RDW Coefficient Variation 12.7 % (11.7-14.2); RDW Standard Deviation 47.8 fL (35.1-46.3); Red Blood Cell Count 3.73 M/mm3 (3.80-5.20); White Blood Cell Count 6.95 K/mm3 (4.00-11.30)
[2020-09-15 08:37] LABS: Albumin, Blood 3.3 g/dL (3.4-5.0); Anion Gap 9 mmol/L (6-16); Blood Urea Nitrogen 8 mg/dL (8-24); Bun/Creatinine Ratio 13.5 (12.0-20.0); CO2, Blood 25 mmol/L (21-32); Calcium, Blood 8.8 mg/dL (8.5-10.1); Chloride, Blood 106 mmol/L (98-108); Creatinine, Blood 0.59 mg/dL (0.40-1.00); Glomerular Filtration Rate >60 (60-); Glucose, Blood 89 mg/dL (70-99); Magnesium, Blood 2.3 mg/dL (1.6-2.4); Phosphorus, Blood 3.3 mg/dL (2.5-4.9); Potassium, Blood 4.1 mmol/L (3.5-5.5); Sodium, Blood 140 mmol/L (136-145)
--- NOTE | 2020-09-15 17:09 | NUR ---
SHIFT SUMMARY: VSS, NO FEVER OR PAIN. UP TO BEDSIDE COMMODE WITH ONE ASSIST, BRIEF ON FOR OCCASIONAL INCONTINENCE. PT HAS BEEN SOMNULENT AT TIMES BUT WHEN AWAKE IS A/O X2 TO 4, DEPENDING ON HER MOOD. APPETITE HAS BEEN MINIMAL TODAY. REPORT CALLED TO JELLY GOMEZ, PATIENT TRANSFERING TO MEDICAL FLOOR, ROOM 344. CALLED AND INFORMED OF MOVE.
--- NOTE | 2020-09-15 18:04 | NUR ---
RECIEVED PT AT 1730. PT AO AND COOPERATIVE OF CARE. PT WAS ABLE TO AMBULATE TO RESTROOM A ONE PERSON. BED ALARM IS ON AND CALL LIGHT IS IN REACH. WILL CONTINUE TO MONITOR TILL CHANGE OF SHIFT OCCURS.
--- NOTE | 2020-09-16 04:43 | NUR ---
PROFESSOR OF SPECIAL EDUCATION SUMMARY NO ACUTE CHANGES THIS SHIFT. PT AAOX3, PLEASANT AND COOPERATIVE. KNOWS HER NAME, , WHERE SHE IS, AND THE YEAR. SOMETIMES FORGETFUL AND UNSURE OF SMALL DETAILS BUT ORIENTED FOR THE MOST PART. DENIES SOB, PAIN. FACE SHEET SENT TO ED FOR DR MOORE CONSULT. PT HAS RESTED MOST OF THE NIGHT WITH BED ALARM ON FOR SAFETY. VSS, WILL CONTINUE TO MONITOR.
--- NOTE | 2020-09-16 18:40 | NUR ---
PATIENT IS ALERT AND ORINTED TO SELF, FOLLOWING DIRECTIONS AND FAMILY. DR. MOORE ASSESSED THE PATIENT TODAY. PATIET HAS STATED THAT SHE DOES NOT WANT TO GO HOME WITH HER . THE PATIENT'S SON AND ARE BOTH INVOLVED IN HER CARE. NO COMPLAINTS OF PAIN. PATIENT CALLS APPROPRIATELY. THE PATIENT'S CELL PHONE IS AT HOME ACCORDING TO THE PATIENT'S . WILL CONTINUE TO MONITOR.
--- NOTE | 2020-09-17 04:55 | NUR ---
SHIFT SUMMARY NO ACUTE CHANGES TO REPORT THIS SHIFT. PT HAS BEEN PLESANT WITH CARE. SHE HAS DENIED PAIN. PT CALLS APPROPRIATELY. INCONTINENT OF URINE, REQUIRING TWO LINEN CHANGES THIS SHIFT. ASSESSMENT REMAINS UNCHANGED. BED IN LOWEST POSITION, CALL LIGHT WITHIN REACH.
--- NOTE | 2020-09-17 15:49 | NUR ---
DISCHARGE NOTE- PT WAS GIVEN VERBAL AND WRITTEN DISCHARGE INSTRUCTIONS AND ACKNOWLEDGED UNDERSTANDING OF THEM. TELE AND IV DC'D PRIOR TO DISCHARGE. CALLED PT SPOUSE BARON TO BRING [employer]OTH[employer] AND COME TO PICK HER UP WILL GO OVER DISCHARGE INSTRUCTIONS WITH HIM WHEN HE ARRIVES. PT WILL BE ESCORTED OUT VIA WC. MEDS FAXED TO [facility] THE [facility] PER PT SPOUSE REQUEST.
== END 2020-09-17 16:28 | disposition home or self-care (01) | DRG 885 ==
LOC: ER 13:56 → ERHOLD 17:40 → MEDS 17:40 → ICUW 18:49 → MEDS 09-15 17:27
PROVIDERS: Emergency Medicine; Internal Medicine; ADMIT Hospitalist
DX: F31.9 Bipolar disorder, unspecified (principal); G92 Toxic encephalopathy; E03.9 Hypothyroidism, unspecified; E86.0 Dehydration; I10 Essential (primary) hypertension; I25.2 Old myocardial infarction; I34.0 Nonrheumatic mitral (valve) insufficiency; J44.9 Chronic obstructive pulmonary disease, unspecified; Z20.822 Contact with and (suspected) exposure to COVID-19; I48.0 Paroxysmal atrial fibrillation; E87.6 Hypokalemia; G40.909 Epilepsy, unspecified, not intractable, without status epilepticus; Z91.14 Patient's other noncompliance with medication regimen; Z87.891 Personal history of nicotine dependence
CPT/HCPCS: 36415; 70450; 71045; 80053; 80069; 81001; 82306; 82652; 83605; 83690; 83735; 83880; 84145; 84439; 84443; 84484; 85025; 85610; 87040; 87086; 93005; 93010; 94640; 96361; 96374; 96375; 97165; 97530; 99285-25; A9270; G0480; J0133; J1200; J1630; J1650; J2060; J2185; J2250; J3010; J3370; J7030; P9612

== ENCOUNTER 2020-10-02 17:31 | Observation (INO) | payer MEDICARE, BC ==
[~2020-10-02] VITALS: Ht 162.6 cm; Wt 72.6 kg
[~2020-10-02 17:31] MED LIST changes: +ELIQUIS5 M3 PO; +SYNTHROID25 MC3 PO
[2020-10-02 20:10] LABS: BASOPHILS PERCENT AUTO 1 % (0-2); EOSINOPHILS ABSOLUTE AUTO 0.18 K/mm3 (0.00-0.68); EOSINOPHILS PERCENT AUTO 2 % (0-6); Hematocrit 40.8 % (33.0-51.0); Hemoglobin 13.2 g/dL (11.5-16.0); IMMATURE GRAN ABSOLUTE AUTO 0.03 K/mm3 (0.00-0.10); IMMATURE GRAN PERCENT AUTO 0 % (0-1); LYMPHOCYTES ABSOLUTE AUTO 1.47 K/mm3 (0.84-5.20); LYMPHOCYTES PERCENT AUTO 16 % (21-46); MONOCYTES ABSOLUTE AUTO 0.97 K/mm3 (0.16-1.47); MONOCYTES PERCENT AUTO 11 % (4-13); Mean Corpuscular HGB 32.8 pg (26.0-34.0); Mean Corpuscular HGB Conc 32.4 g/dL (31.5-36.5); Mean Corpuscular Volume 101 fL (80-100); Mean Platelet Volume 9.2 fL (9.1-12.4); NEUTROPHILS ABSOLUTE AUTO 6.31 K/mm3 (1.96-9.15); NEUTROPHILS PERCENT AUTO 70 % (41-73); Platelet Count 256 K/mm3 (150-400); RDW Coefficient Variation 12.5 % (11.7-14.2); RDW Standard Deviation 46.8 fL (35.1-46.3); Red Blood Cell Count 4.03 M/mm3 (3.80-5.20); White Blood Cell Count 9.06 K/mm3 (4.00-11.30)
[2020-10-02 20:38] LABS: Alanine Aminotransfer (ALT/SGP 45 U/L (12-78); Albumin, Blood 4.2 g/dL (3.4-5.0); Albumin/Globulin Ratio 1.3 (0.8-1.8); Alk Phos 141 U/L (50-136); Anion Gap 9 mmol/L (6-16); Aspartate Aminotrans (AST/SGOT 47 U/L (12-37); Bilirubin, Total 1.2 mg/dL (0.1-1.0); Blood Urea Nitrogen 32 mg/dL (8-24); CO2, Blood 22 mmol/L (21-32); Calcium, Blood 9.9 mg/dL (8.5-10.1); Chloride, Blood 110 mmol/L (98-108); Ethanol (Alcohol), Blood, Med <3 mg/dL; Free Thyroxine 1.17 ng/dL (0.70-1.60); Globulin, Blood 3.2 g/dL (2.2-4.0); Glomerular Filtration Rate >60 (60-); Glucose, Blood 93 mg/dL (70-99); Potassium, Blood 4.1 mmol/L (3.5-5.5); Salicylate <1.7 mg/dL (2.8-20.0); Sodium, Blood 141 mmol/L (136-145); Total Protein, Blood 7.4 g/dL (6.4-8.2)
[2020-10-02 20:41] LABS: Acetaminophen, Random <2.0 ug/mL (10.0-30.0)
[2020-10-03 21:51] LABS: Source, Urine Clean Catch
[2020-10-03 21:55] LABS: Appearance, Urine Clear (Clear); Blood, Urine 1+ (Neg); Color, Urine Yellow (P-Yellow); Glucose Qualitative, Urine Neg (Neg); Ketones, Urine 3+ (Neg); Leukocyte Esterase, Urine 3+ (Neg); Nitrite, Urine Neg (Neg); Protein, Urine 2+ (Neg); Urobilinogen, Urine 1+ (Normal)
[2020-10-03 22:12] LABS: Bilirubin, Urine 1+ (Neg)
[2020-10-03 22:14] LABS: Bacteria Few /hpf; Squamous Epithelial Cells Few /hpf (Few)
[2020-10-03 22:16] LABS: Calcium Oxalate Crystals Few /hpf; Mucus Light (0-Heavy); Red Blood Cells, Urine Rare /hpf (0-2); U Amphetamine Screen Not Detected; U Barbituate Screen Not Detected; U Benzodiazapine Screen Not Detected; U Buprenorphine Screen Not Detected; U Cannabinoids Screen DETECTED; U Cocaine Screen Not Detected; U Methadone Screen Not Detected; U Methamphetamine Screen Not Detected; U Opiates Screen Not Detected; U Oxycodone Screen Not Detected; U Phencyclidine Screen Not Detected; U Propoxyphene Screen Not Detected
[2020-10-04 09:11] LABS: Influenza A, PCR NEGATIVE (NEGATIVE); Influenza B, PCR NEGATIVE (NEGATIVE); Resp Syncytial Virus, PCR NEGATIVE (NEGATIVE); SARS-Cov-2 (COVID-19) PCR, MMC NEGATIVE (NEGATIVE)
== END 2020-10-10 17:21 | disposition left against medical advice (07) ==
LOC: ER 17:31 → EOR 17:32
PROVIDERS: ADMIT Emergency Medicine
DX: F31.9 Bipolar disorder, unspecified (principal); F29 Unspecified psychosis not due to a substance or known physiological condition; I48.0 Paroxysmal atrial fibrillation; I10 Essential (primary) hypertension; E03.9 Hypothyroidism, unspecified; J44.9 Chronic obstructive pulmonary disease, unspecified; Z87.891 Personal history of nicotine dependence; Z79.01 Long term (current) use of anticoagulants; Z79.82 Long term (current) use of aspirin
CPT/HCPCS: 0241U; 36415; 80053; 81001; 84439; 84443; 85025; 87077; 87086; 87186; 99285; A9270; G0378; G0480

== ENCOUNTER 2020-10-13 17:17 | Observation (INO) | payer MEDICARE, BC ==
[~2020-10-13] VITALS: Ht 154.9 cm; Wt 81.7 kg
[2020-10-13 19:05] LABS: BASOPHILS ABSOLUTE AUTO 0.07 K/mm3 (0.00-0.23); BASOPHILS PERCENT AUTO 1 % (0-2); EOSINOPHILS ABSOLUTE AUTO 0.12 K/mm3 (0.00-0.68); EOSINOPHILS PERCENT AUTO 2 % (0-6); Hematocrit 42.4 % (33.0-51.0); IMMATURE GRAN ABSOLUTE AUTO 0.01 K/mm3 (0.00-0.10); IMMATURE GRAN PERCENT AUTO 0 % (0-1); LYMPHOCYTES ABSOLUTE AUTO 1.58 K/mm3 (0.84-5.20); LYMPHOCYTES PERCENT AUTO 23 % (21-46); MONOCYTES ABSOLUTE AUTO 0.76 K/mm3 (0.16-1.47); MONOCYTES PERCENT AUTO 11 % (4-13); Mean Corpuscular HGB 32.9 pg (26.0-34.0); Mean Corpuscular Volume 100 fL (80-100); Mean Platelet Volume 10.8 fL (9.1-12.4); NEUTROPHILS ABSOLUTE AUTO 4.33 K/mm3 (1.96-9.15); NEUTROPHILS PERCENT AUTO 63 % (41-73); Platelet Count 297 K/mm3 (150-400); RDW Coefficient Variation 12.2 % (11.7-14.2); RDW Standard Deviation 45.1 fL (35.1-46.3); Red Blood Cell Count 4.26 M/mm3 (3.80-5.20); White Blood Cell Count 6.87 K/mm3 (4.00-11.30)
[2020-10-13 19:15] LABS: Alanine Aminotransfer (ALT/SGP 38 U/L (12-78); Albumin/Globulin Ratio 1.1 (0.8-1.8); Alk Phos 148 U/L (50-136); Anion Gap 5 mmol/L (6-16); Aspartate Aminotrans (AST/SGOT 33 U/L (12-37); Blood Urea Nitrogen 15 mg/dL (8-24); Bun/Creatinine Ratio 18.2 (12.0-20.0); CO2, Blood 27 mmol/L (21-32); Calcium, Blood 9.7 mg/dL (8.5-10.1); Chloride, Blood 109 mmol/L (98-108); Creatinine, Blood 0.83 mg/dL (0.40-1.00); Ethanol (Alcohol), Blood, Med <3 mg/dL; Globulin, Blood 3.5 g/dL (2.2-4.0); Glomerular Filtration Rate >60 (60-); Glucose, Blood 96 mg/dL (70-99); Salicylate <1.7 mg/dL (2.8-20.0); Sodium, Blood 141 mmol/L (136-145); Total Protein, Blood 7.5 g/dL (6.4-8.2)
[2020-10-13 19:17] LABS: Acetaminophen, Random <2.0 ug/mL (10.0-30.0)
[2020-10-13 19:59] LABS: Influenza A, PCR NEGATIVE (NEGATIVE); Influenza B, PCR NEGATIVE (NEGATIVE); Resp Syncytial Virus, PCR NEGATIVE (NEGATIVE); SARS-Cov-2 (COVID-19) PCR, MMC NEGATIVE (NEGATIVE)
[2020-10-13 23:11] LABS: Source, Urine Clean Catch
[2020-10-13 23:13] LABS: Blood, Urine Neg (Neg); Glucose Qualitative, Urine Neg (Neg); Ketones, Urine 3+ (Neg); Leukocyte Esterase, Urine 2+ (Neg); Nitrite, Urine Neg (Neg); Protein, Urine 2+ (Neg); Urobilinogen, Urine 2+ (Normal)
[2020-10-13 23:32] LABS: Appearance, Urine Hazy (Clear); Bilirubin, Urine 1+ (Neg); Color, Urine Amber (P-Yellow)
[2020-10-13 23:36] LABS: Red Blood Cells, Urine 0-2 /hpf (0-2)
[2020-10-13 23:37] LABS: Amorphous Light (0-Heavy); Bacteria Mod /hpf; Hyaline Casts 0-2 /lpf (0-2); Squamous Epithelial Cells Few /hpf (Few)
[2020-10-13 23:38] LABS: U Amphetamine Screen Not Detected; U Barbituate Screen Not Detected; U Benzodiazapine Screen Not Detected; U Buprenorphine Screen Not Detected; U Cannabinoids Screen DETECTED; U Cocaine Screen Not Detected; U Methadone Screen Not Detected; U Methamphetamine Screen Not Detected; U Opiates Screen Not Detected; U Oxycodone Screen Not Detected; U Phencyclidine Screen Not Detected; U Propoxyphene Screen Not Detected
== END 2020-10-20 16:50 | disposition home or self-care (01) ==
LOC: ER 17:17 → EOR 17:18
PROVIDERS: Physician Assistant; ADMIT Emergency Medicine
DX: F31.13 Bipolar disorder, current episode manic without psychotic features, severe (principal); I10 Essential (primary) hypertension; G40.909 Epilepsy, unspecified, not intractable, without status epilepticus; E03.9 Hypothyroidism, unspecified; J44.9 Chronic obstructive pulmonary disease, unspecified; Z88.0 Allergy status to penicillin; Z79.82 Long term (current) use of aspirin; Z87.891 Personal history of nicotine dependence; Z20.822 Contact with and (suspected) exposure to COVID-19
CPT/HCPCS: 0241U; 36415; 80053; 81001; 85025; 87086; 96372; 99285; A9270; G0378; G0480; J1790

== ENCOUNTER 2020-10-24 09:16 | Observation (INO) | payer MEDICARE, BC ==
[~2020-10-24] VITALS: Ht 162.6 cm; Wt 90.7 kg
[2020-10-24 12:41] LABS: BASOPHILS ABSOLUTE AUTO 0.06 K/mm3 (0.00-0.23); BASOPHILS PERCENT AUTO 1 % (0-2); EOSINOPHILS ABSOLUTE AUTO 0.06 K/mm3 (0.00-0.68); EOSINOPHILS PERCENT AUTO 1 % (0-6); Hematocrit 40.8 % (33.0-51.0); IMMATURE GRAN ABSOLUTE AUTO 0.01 K/mm3 (0.00-0.10); IMMATURE GRAN PERCENT AUTO 0 % (0-1); LYMPHOCYTES ABSOLUTE AUTO 1.29 K/mm3 (0.84-5.20); LYMPHOCYTES PERCENT AUTO 15 % (21-46); MONOCYTES ABSOLUTE AUTO 0.79 K/mm3 (0.16-1.47); MONOCYTES PERCENT AUTO 9 % (4-13); Mean Corpuscular HGB 33.6 pg (26.0-34.0); Mean Corpuscular HGB Conc 34.3 g/dL (31.5-36.5); Mean Corpuscular Volume 98 fL (80-100); Mean Platelet Volume 10.3 fL (9.1-12.4); NEUTROPHILS ABSOLUTE AUTO 6.61 K/mm3 (1.96-9.15); NEUTROPHILS PERCENT AUTO 75 % (41-73); Platelet Count 255 K/mm3 (150-400); RDW Coefficient Variation 11.9 % (11.7-14.2); RDW Standard Deviation 43.1 fL (35.1-46.3); Red Blood Cell Count 4.17 M/mm3 (3.80-5.20); White Blood Cell Count 8.82 K/mm3 (4.00-11.30)
[2020-10-24 13:06] LABS: Ethanol (Alcohol), Blood, Med <3 mg/dL; Free Thyroxine 1.12 ng/dL (0.70-1.60); Salicylate <1.7 mg/dL (2.8-20.0)
[2020-10-24 13:07] LABS: Acetaminophen, Random <2.0 ug/mL (10.0-30.0); Alanine Aminotransfer (ALT/SGP 32 U/L (12-78); Albumin, Blood 3.9 g/dL (3.4-5.0); Albumin/Globulin Ratio 1.1 (0.8-1.8); Alk Phos 140 U/L (50-136); Anion Gap 8 mmol/L (6-16); Aspartate Aminotrans (AST/SGOT 52 U/L (12-37); Bilirubin, Total 1.1 mg/dL (0.1-1.0); Blood Urea Nitrogen 18 mg/dL (8-24); Bun/Creatinine Ratio 21.4 (12.0-20.0); CO2, Blood 22 mmol/L (21-32); Calcium, Blood 9.2 mg/dL (8.5-10.1); Chloride, Blood 108 mmol/L (98-108); Creatinine, Blood 0.84 mg/dL (0.40-1.00); Globulin, Blood 3.5 g/dL (2.2-4.0); Glomerular Filtration Rate >60 (60-); Glucose, Blood 95 mg/dL (70-99); Potassium, Blood 4.5 mmol/L (3.5-5.5); Sodium, Blood 138 mmol/L (136-145); Total Protein, Blood 7.4 g/dL (6.4-8.2)
[2020-10-24 15:14] LABS: Influenza A, PCR NEGATIVE (NEGATIVE); Influenza B, PCR NEGATIVE (NEGATIVE); Resp Syncytial Virus, PCR NEGATIVE (NEGATIVE); SARS-Cov-2 (COVID-19) PCR, MMC NEGATIVE (NEGATIVE)
[2020-10-25 11:28] LABS: Source, Urine Clean Catch
[2020-10-25 11:34] LABS: Blood, Urine 1+ (Neg); Glucose Qualitative, Urine Neg (Neg); Ketones, Urine 2+ (Neg); Leukocyte Esterase, Urine 3+ (Neg); Nitrite, Urine Neg (Neg); Protein, Urine 2+ (Neg); Urobilinogen, Urine 1+ (Normal)
[2020-10-25 11:47] LABS: U Amphetamine Screen Not Detected; U Barbituate Screen Not Detected; U Benzodiazapine Screen Not Detected; U Buprenorphine Screen Not Detected; U Cannabinoids Screen Not Detected; U Cocaine Screen Not Detected; U Methadone Screen Not Detected; U Methamphetamine Screen Not Detected; U Opiates Screen Not Detected; U Oxycodone Screen Not Detected; U Phencyclidine Screen Not Detected; U Propoxyphene Screen Not Detected
[2020-10-25 11:50] LABS: Bilirubin, Urine 1+ (Neg)
[2020-10-25 11:51] LABS: Appearance, Urine Cloudy (Clear); Color, Urine Yellow (P-Yellow)
[2020-10-25 11:53] LABS: Bacteria Many /hpf; Red Blood Cells, Urine 0-2 /hpf (0-2); Squamous Epithelial Cells Mod /hpf (Few)
[2020-10-25 11:54] LABS: Calcium Oxalate Crystals Many /hpf
== END 2020-10-28 13:35 | disposition home or self-care (01) ==
LOC: ER 09:16 → EOR 09:17
PROVIDERS: ADMIT Emergency Medicine
DX: F31.2 Bipolar disorder, current episode manic severe with psychotic features (principal); F29 Unspecified psychosis not due to a substance or known physiological condition; I21.9 Acute myocardial infarction, unspecified; E03.9 Hypothyroidism, unspecified; I10 Essential (primary) hypertension; J44.9 Chronic obstructive pulmonary disease, unspecified; I48.0 Paroxysmal atrial fibrillation; F12.929 Cannabis use, unspecified with intoxication, unspecified; Z79.82 Long term (current) use of aspirin; Z88.0 Allergy status to penicillin; Z88.8 Allergy status to other drugs, medicaments and biological substances; Z87.891 Personal history of nicotine dependence
CPT/HCPCS: 0241U; 36415; 80053; 81001; 81025; 84439; 84443; 85025; 87077; 87086; 87186; 99285; A9270; G0378; G0480; Q3014

== ENCOUNTER 2020-11-04 23:08 | Emergency (ER) | payer MEDICARE, BC ==
[~2020-11-04] VITALS: Ht 165.1 cm; Wt 68.0 kg
== END 2020-11-05 00:13 | disposition home or self-care (01) ==
LOC: ER 23:08
DX: Z00.00 Encounter for general adult medical examination without abnormal findings (principal); J44.9 Chronic obstructive pulmonary disease, unspecified; E03.9 Hypothyroidism, unspecified; Z88.0 Allergy status to penicillin; Z79.01 Long term (current) use of anticoagulants; Z79.899 Other long term (current) drug therapy
CPT/HCPCS: 99282

== ENCOUNTER 2021-01-14 14:05 | Observation (INO) | payer MEDICARE, BC ==
[~2021-01-14] VITALS: Ht 162.6 cm; Wt 70.3 kg
[2021-01-14 17:01] LABS: BASOPHILS PERCENT AUTO 1 % (0-2); EOSINOPHILS ABSOLUTE AUTO 0.14 K/mm3 (0.00-0.68); EOSINOPHILS PERCENT AUTO 1 % (0-6); Hematocrit 40.7 % (33.0-51.0); Hemoglobin 13.5 g/dL (11.5-16.0); IMMATURE GRAN ABSOLUTE AUTO 0.05 K/mm3 (0.00-0.10); IMMATURE GRAN PERCENT AUTO 1 % (0-1); LYMPHOCYTES ABSOLUTE AUTO 1.08 K/mm3 (0.84-5.20); LYMPHOCYTES PERCENT AUTO 11 % (21-46); MONOCYTES ABSOLUTE AUTO 1.11 K/mm3 (0.16-1.47); MONOCYTES PERCENT AUTO 11 % (4-13); Mean Corpuscular HGB 33.3 pg (26.0-34.0); Mean Corpuscular HGB Conc 33.2 g/dL (31.5-36.5); Mean Corpuscular Volume 101 fL (80-100); Mean Platelet Volume 10.2 fL (9.1-12.4); NEUTROPHILS ABSOLUTE AUTO 7.49 K/mm3 (1.96-9.15); NEUTROPHILS PERCENT AUTO 75 % (41-73); Platelet Count 377 K/mm3 (150-400); RDW Coefficient Variation 12.5 % (11.7-14.2); RDW Standard Deviation 46.5 fL (35.1-46.3); Red Blood Cell Count 4.05 M/mm3 (3.80-5.20); White Blood Cell Count 9.97 K/mm3 (4.00-11.30)
[2021-01-14 17:12] LABS: Ethanol (Alcohol), Blood, Med <3 mg/dL; Salicylate <1.7 mg/dL (2.8-20.0)
[2021-01-14 17:13] LABS: Alanine Aminotransfer (ALT/SGP 36 U/L (12-78); Albumin, Blood 4.4 g/dL (3.4-5.0); Albumin/Globulin Ratio 1.1 (0.8-1.8); Alk Phos 142 U/L (50-136); Anion Gap 9 mmol/L (6-16); Aspartate Aminotrans (AST/SGOT 42 U/L (12-37); Bilirubin, Total 1.2 mg/dL (0.1-1.0); Blood Urea Nitrogen 23 mg/dL (8-24); Bun/Creatinine Ratio 23.6 (12.0-20.0); CO2, Blood 24 mmol/L (21-32); Calcium, Blood 10.1 mg/dL (8.5-10.1); Chloride, Blood 107 mmol/L (98-108); Creatinine, Blood 0.98 mg/dL (0.40-1.00); Globulin, Blood 3.9 g/dL (2.2-4.0); Glomerular Filtration Rate >60 (60-); Glucose, Blood 90 mg/dL (70-99); Potassium, Blood 4.4 mmol/L (3.5-5.5); Sodium, Blood 140 mmol/L (136-145); Total Protein, Blood 8.3 g/dL (6.4-8.2)
[2021-01-14 17:14] LABS: Acetaminophen, Random <2.0 ug/mL (10.0-30.0)
[2021-01-15 11:18] LABS: SARS-Cov-2 (COVID-19) PCR, MMC NEGATIVE (NEGATIVE)
[2021-01-15 22:09] LABS: Source, Urine Clean Catch
[2021-01-15 22:13] LABS: Bilirubin, Urine 1+ (Neg); Blood, Urine 1+ (Neg); Glucose Qualitative, Urine Neg (Neg); Ketones, Urine 3+ (Neg); Leukocyte Esterase, Urine 3+ (Neg); Nitrite, Urine Neg (Neg); Protein, Urine 2+ (Neg); Specific Gravity, Urine 1.025 (1.003-1.022); Urobilinogen, Urine 1+ (Normal)
[2021-01-15 22:14] LABS: Appearance, Urine Cloudy (Clear); Color, Urine Yellow (P-Yellow)
[2021-01-15 22:18] LABS: Amorphous Mod (0-Heavy); Bacteria Many /hpf; Mucus Light (0-Heavy); Red Blood Cells, Urine 0-2 /hpf (0-2); Squamous Epithelial Cells Many /hpf (Few); White Blood Cells, Urine 50-100 /hpf (0-5)
[2021-01-15 22:28] LABS: U Amphetamine Screen Not Detected; U Barbituate Screen Not Detected; U Benzodiazapine Screen Not Detected; U Buprenorphine Screen Not Detected; U Cannabinoids Screen DETECTED; U Cocaine Screen Not Detected; U Methadone Screen Not Detected; U Methamphetamine Screen Not Detected; U Opiates Screen Not Detected; U Oxycodone Screen Not Detected; U Phencyclidine Screen Not Detected; U Propoxyphene Screen Not Detected
== END 2021-01-22 17:21 | disposition home or self-care (01) ==
LOC: ER 14:05 → EOR 14:06
PROVIDERS: Emergency Medicine; Physician Assistant; ADMIT Emergency Medicine
DX: F31.2 Bipolar disorder, current episode manic severe with psychotic features (principal); I48.0 Paroxysmal atrial fibrillation; E03.9 Hypothyroidism, unspecified; J44.9 Chronic obstructive pulmonary disease, unspecified; I25.2 Old myocardial infarction; I10 Essential (primary) hypertension; F12.11 Cannabis abuse, in remission; F10.11 Alcohol abuse, in remission; F15.11 Other stimulant abuse, in remission; R94.31 Abnormal electrocardiogram [ECG] [EKG]; R82.90 Unspecified abnormal findings in urine; Z91.14 Patient's other noncompliance with medication regimen; Z20.822 Contact with and (suspected) exposure to COVID-19; Z96.611 Presence of right artificial shoulder joint; Z79.01 Long term (current) use of anticoagulants; Z79.82 Long term (current) use of aspirin; Z88.0 Allergy status to penicillin; Z88.8 Allergy status to other drugs, medicaments and biological substances
CPT/HCPCS: 80053; 81001; 85025; 87077; 87086; 87186; 93005; 93010; 96372; 99285-25; A9270; G0378; G0480; J1200; Q3014; U0004

== ENCOUNTER 2021-01-26 15:55 | Observation (INO) | payer MEDICARE, BC ==
[~2021-01-26] VITALS: Ht 157.5 cm; Wt 77.1 kg
[2021-01-26 16:42] LABS: BASOPHILS ABSOLUTE AUTO 0.07 K/mm3 (0.00-0.23); BASOPHILS PERCENT AUTO 1 % (0-2); EOSINOPHILS PERCENT AUTO 1 % (0-6); Hemoglobin 13.4 g/dL (11.5-16.0); IMMATURE GRAN ABSOLUTE AUTO 0.02 K/mm3 (0.00-0.10); IMMATURE GRAN PERCENT AUTO 0 % (0-1); LYMPHOCYTES ABSOLUTE AUTO 1.16 K/mm3 (0.84-5.20); LYMPHOCYTES PERCENT AUTO 14 % (21-46); MONOCYTES ABSOLUTE AUTO 0.83 K/mm3 (0.16-1.47); MONOCYTES PERCENT AUTO 10 % (4-13); Mean Corpuscular HGB 32.8 pg (26.0-34.0); Mean Corpuscular HGB Conc 32.7 g/dL (31.5-36.5); Mean Corpuscular Volume 100 fL (80-100); Mean Platelet Volume 10.5 fL (9.1-12.4); NEUTROPHILS ABSOLUTE AUTO 5.96 K/mm3 (1.96-9.15); NEUTROPHILS PERCENT AUTO 73 % (41-73); Platelet Count 322 K/mm3 (150-400); RDW Coefficient Variation 12.2 % (11.7-14.2); RDW Standard Deviation 45.6 fL (35.1-46.3); Red Blood Cell Count 4.09 M/mm3 (3.80-5.20); White Blood Cell Count 8.14 K/mm3 (4.00-11.30)
[2021-01-26 17:14] LABS: Alanine Aminotransfer (ALT/SGP 31 U/L (12-78); Albumin, Blood 4.1 g/dL (3.4-5.0); Albumin/Globulin Ratio 1.2 (0.8-1.8); Alk Phos 117 U/L (50-136); Anion Gap 6 mmol/L (6-16); Aspartate Aminotrans (AST/SGOT 32 U/L (12-37); Blood Urea Nitrogen 20 mg/dL (8-24); Bun/Creatinine Ratio 25.4 (12.0-20.0); CO2, Blood 26 mmol/L (21-32); Calcium, Blood 9.2 mg/dL (8.5-10.1); Chloride, Blood 107 mmol/L (98-108); Creatinine, Blood 0.79 mg/dL (0.40-1.00); Ethanol (Alcohol), Blood, Med <3 mg/dL; Globulin, Blood 3.5 g/dL (2.2-4.0); Glomerular Filtration Rate >60 (60-); Glucose, Blood 122 mg/dL (70-99); Potassium, Blood 3.7 mmol/L (3.5-5.5); Salicylate <1.7 mg/dL (2.8-20.0); Sodium, Blood 139 mmol/L (136-145); Total Protein, Blood 7.6 g/dL (6.4-8.2)
[2021-01-26 17:15] LABS: Acetaminophen, Random <2.0 ug/mL (10.0-30.0)
[2021-01-26 17:38] LABS: SARS-Cov-2 (COVID-19) PCR, MMC NEGATIVE (NEGATIVE)
[2021-01-29 20:01] LABS: Source, Urine Clean Catch
[2021-01-29 20:06] LABS: Appearance, Urine Cloudy (Clear); Bilirubin, Urine Neg (Neg); Blood, Urine Neg (Neg); Color, Urine Yellow (P-Yellow); Glucose Qualitative, Urine Neg (Neg); Ketones, Urine 1+ (Neg); Leukocyte Esterase, Urine 1+ (Neg); Nitrite, Urine Neg (Neg); Protein, Urine Neg (Neg); Urobilinogen, Urine 1+ (Normal)
[2021-01-29 20:19] LABS: Amorphous Heavy (0-Heavy); Bacteria Mod /hpf; Red Blood Cells, Urine Not Seen /hpf (0-2); Squamous Epithelial Cells Mod /hpf (Few)
[2021-01-29 20:30] LABS: U Amphetamine Screen Not Detected; U Barbituate Screen Not Detected; U Benzodiazapine Screen DETECTED; U Buprenorphine Screen Not Detected; U Cannabinoids Screen Not Detected; U Cocaine Screen Not Detected; U Methadone Screen Not Detected; U Methamphetamine Screen Not Detected; U Opiates Screen Not Detected; U Oxycodone Screen Not Detected; U Phencyclidine Screen Not Detected; U Propoxyphene Screen Not Detected
== END 2021-02-02 12:50 ==
LOC: ER 15:55 → EOR 15:56
PROVIDERS: ADMIT Emergency Medicine
DX: F31.2 Bipolar disorder, current episode manic severe with psychotic features (principal); I48.0 Paroxysmal atrial fibrillation; E03.9 Hypothyroidism, unspecified; J44.9 Chronic obstructive pulmonary disease, unspecified; Z20.822 Contact with and (suspected) exposure to COVID-19; I25.2 Old myocardial infarction; F12.11 Cannabis abuse, in remission; F10.11 Alcohol abuse, in remission; F15.11 Other stimulant abuse, in remission; Z87.891 Personal history of nicotine dependence; Z79.01 Long term (current) use of anticoagulants; Z91.14 Patient's other noncompliance with medication regimen
CPT/HCPCS: 80053; 81001; 85025; 87086; 96372; 99285; A9270; G0378; G0480; J2060; U0004

== ENCOUNTER 2021-02-02 17:28 | Observation (INO) | payer MEDICARE, BC ==
[~2021-02-02] VITALS: Ht 154.9 cm; Wt 68.9 kg
[2021-02-03 22:10] LABS: Source, Urine Voided
[2021-02-03 22:18] LABS: Bilirubin, Urine Neg (Neg); Blood, Urine Neg (Neg); Glucose Qualitative, Urine Neg (Neg); Ketones, Urine Neg (Neg); Leukocyte Esterase, Urine 2+ (Neg); Nitrite, Urine Neg (Neg); Protein, Urine Neg (Neg); Urobilinogen, Urine NORM (Normal)
[2021-02-03 22:26] LABS: Appearance, Urine Hazy (Clear); Color, Urine Yellow (P-Yellow)
[2021-02-03 22:27] LABS: Amorphous Heavy (0-Heavy); Bacteria Mod /hpf; Red Blood Cells, Urine Not Seen /hpf (0-2); Squamous Epithelial Cells Few /hpf (Few); White Blood Cells, Urine 25-50 /hpf (0-5)
== END 2021-02-12 14:05 | disposition short-term general hospital (02) ==
LOC: ER 17:28 → EOR 17:29
PROVIDERS: ADMIT Emergency Medicine
DX: F31.9 Bipolar disorder, unspecified (principal); I48.91 Unspecified atrial fibrillation; Z87.891 Personal history of nicotine dependence; Z79.82 Long term (current) use of aspirin; Z79.01 Long term (current) use of anticoagulants
CPT/HCPCS: 81001; 87086; 99285; A9270; G0378

== ENCOUNTER 2023-06-03 23:55 | Emergency (ER) | payer MEDICARE, BC ==
[~2023-06-03] VITALS: Ht 162.6 cm; Wt 79.4 kg
[2023-06-04 00:04] VITALS: BP 136/86
== END 2023-06-04 00:26 | disposition home or self-care (01) ==
LOC: ER 23:55
DX: R06.00 Dyspnea, unspecified (principal); Z88.0 Allergy status to penicillin; Z88.8 Allergy status to other drugs, medicaments and biological substances; Z79.899 Other long term (current) drug therapy; Z79.82 Long term (current) use of aspirin; Z87.891 Personal history of nicotine dependence
CPT/HCPCS: 99282

== ENCOUNTER 2023-06-16 14:12 | Emergency (ER) | payer MEDICARE, BC ==
[~2023-06-16] VITALS: Ht 157.5 cm; Wt 81.7 kg
[2023-06-16 14:40] LABS: BASOPHILS ABSOLUTE AUTO 0.09 K/mm3 (0.00-0.23); BASOPHILS PERCENT AUTO 1 % (0-2); EOSINOPHILS ABSOLUTE AUTO 0.02 K/mm3 (0.00-0.68); EOSINOPHILS PERCENT AUTO 0 % (0-6); Hematocrit 26.6 % (33.0-51.0); Hemoglobin 7.5 g/dL (11.5-16.0); IMMATURE GRAN ABSOLUTE AUTO 0.11 K/mm3 (0.00-0.10); IMMATURE GRAN PERCENT AUTO 1 % (0-1); LYMPHOCYTES ABSOLUTE AUTO 0.77 K/mm3 (0.84-5.20); LYMPHOCYTES PERCENT AUTO 7 % (21-46); MONOCYTES ABSOLUTE AUTO 0.64 K/mm3 (0.16-1.47); MONOCYTES PERCENT AUTO 6 % (4-13); Mean Corpuscular HGB 27.4 pg (26.0-34.0); Mean Corpuscular HGB Conc 28.2 g/dL (31.5-36.5); Mean Corpuscular Volume 97 fL (80-100); Mean Platelet Volume 9.3 fL (9.1-12.4); NEUTROPHILS ABSOLUTE AUTO 8.98 K/mm3 (1.96-9.15); NEUTROPHILS PERCENT AUTO 85 % (41-73); NRBC ABSOLUTE 0.15 K/mm3 (0.00-0.02); NRBC Auto 1.4 /100 WBC (0.0-0.2); Platelet Count 347 K/mm3 (150-400); RDW Coefficient Variation 23.4 % (11.7-14.2); RDW Standard Deviation 63.2 fL (35.1-46.3); Red Blood Cell Count 2.74 M/mm3 (3.80-5.20); White Blood Cell Count 10.61 K/mm3 (4.00-11.30)
[2023-06-16 15:15] LABS: Albumin, Blood 3.2 g/dL (3.4-5.0); Calcium, Blood 8.9 mg/dL (8.5-10.1); Creatinine, Blood 0.92 mg/dL (0.40-1.00); Globulin, Blood 3.2 g/dL (2.2-4.0); Potassium, Blood 4.5 mmol/L (3.5-5.5); Total Protein, Blood 6.4 g/dL (6.4-8.2)
[2023-06-16] MEDS ORDERED: OMEP20ER PO (19:04)
[2023-06-16] MEDS ORDERED: LAMOTRIGINE100 M1 PO (19:04)
[2023-06-16] MEDS ORDERED: METOPROLOL SUCC25 MG PO (19:04)
[2023-06-16] MEDS ORDERED: K-Dur20 MEQ PO (19:05)
[2023-06-16] MEDS ORDERED: JANTOVEN5 M2 PO (19:06)
[2023-06-16] MEDS ORDERED: K-TAB ER20 ME1 PO (19:06)
[2023-06-16] MEDS ORDERED: ROPI1 PO (19:06)
[2023-06-16] MEDS ORDERED: SOAANZ20 M3 PO (19:06)
[2023-06-16] MEDS ORDERED: LIPITOR80 MG PO (19:07)
[2023-06-16 20:11] VITALS: BP 132/77
== END 2023-06-16 20:11 | disposition short-term general hospital (02) ==
LOC: ER 14:12
PROVIDERS: Emergency Medicine
DX: J18.9 Pneumonia, unspecified organism (principal); K92.2 Gastrointestinal hemorrhage, unspecified; Z88.0 Allergy status to penicillin; Z88.8 Allergy status to other drugs, medicaments and biological substances; Z79.899 Other long term (current) drug therapy; Z79.82 Long term (current) use of aspirin; Z87.891 Personal history of nicotine dependence
CPT/HCPCS: 71045; 80053; 82272; 84484; 85025; 93005; 93010; 96365; 96367; 96375; 99285-25; J0456; J0696; J2405; J7050